=== PATIENT | female | born 1960 | race Caucasian/White ===

== ENCOUNTER 2020-08-13 02:01 | Emergency (ER) | payer OTHER ==
[~2020-08-13] VITALS: Ht 144.8 cm; Wt 43.1 kg
[~2020-08-13 02:01] MED LIST: AZITHROMYCIN 2250 MG PO; BACTRIM DS TAB1 EACH PO; NAPROSYN500 MG PO; NEOSPORIN28 GM; NORCO 5-325 TA1 EACH PO; PREDNISONE 10 M10 MG PO
[2020-08-13 04:43] VITALS: BP 164/74
== END 2020-08-13 04:44 | disposition home or self-care (01) ==
LOC: M.ERS 02:01
DX: S90.31XA Contusion of right foot, initial encounter (principal); W22.8XXA Striking against or struck by other objects, initial encounter; Y93.89 Activity, other specified; Y92.89 Other specified places as the place of occurrence of the external cause; Y99.8 Other external cause status